=== PATIENT | male | born 1970 | race Caucasian/White ===

== ENCOUNTER → 2017-10-04 | Outpatient (CLI) | payer OTHER | END | disposition home or self-care (01) | LOC: LABWHC1 12:56 | PROVIDERS: ATTEND Urology | DX: E29.1 Testicular hypofunction (principal) | CPT/HCPCS: 36415; 84403 ==

== ENCOUNTER → 2017-11-18 | Outpatient (CLI) | payer OTHER ==
[2017-11-18 09:39] LABS: Basophils # (A) 0.1 k/uL (0-0.2); Basophils % (A) 1 %; Eosinophils # (A) 0.2 k/uL (0-0.7); Eosinophils % (A) 2 %; HCT 47.5 % (39.0-53.0); HGB 16.7 gm/dL (13.0-17.5); Lymphocytes # (A) 2.4 k/uL (1.0-4.8); Lymphocytes % (A) 30 %; MCH 32.3 pg (25.0-35.0); MCHC 35.1 g/dL (31.0-37.0); MCV 91.8 fL (80.0-100.0); Mean Platelet Volume 7.6; Monocytes # (A) 0.5 k/uL (0-1.0); Monocytes % (A) 6 %; Neutrophils # (A) 4.6 k/uL (1.3-7.7); Neutrophils % (A) 58 %; Platelet Count 191 k/uL (150-450); RBC 5.17 m/uL (4.30-5.90); RDW 12.9 % (11.5-15.5)
[2017-11-18 09:59] LABS: ALT 19 U/L (21-72); AST 19 U/L (17-59); Albumin 4.1 g/dL (3.5-5.0); Alkaline Phosphatase 111 U/L (38-126); Anion Gap 11 mmol/L; Blood Urea Nitrogen 18 mg/dL (9-20); Calcium 9.6 mg/dL (8.4-10.2); Carbon Dioxide 29 mmol/L (22-30); Chloride 108 mmol/L (98-107); Cholesterol 192 mg/dL (<200); Glucose 132 mg/dL (74-99); HDL Cholesterol 39 mg/dL (40-60); LDL Cholesterol,Calculated 119 mg/dL (0-99); Potassium 4.8 mmol/L (3.5-5.1); Sodium 148 mmol/L (137-145); Total Bilirubin 0.4 mg/dL (0.2-1.3); Total Protein 6.7 g/dL (6.3-8.2); Triglycerides 169 mg/dL (<150)
== END ==
LOC: LABWHC1 09:22
PROVIDERS: ATTEND Nurse Practitioner Primary Care
DX: Z00.01 Encounter for general adult medical examination with abnormal findings (principal)
CPT/HCPCS: 36415; 80053; 80061; 82306; 84443; 85025

== ENCOUNTER → 2017-11-27 | Outpatient (CLI) | payer OTHER ==
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
== END | disposition home or self-care (01) ==
LOC: RADXRMAIN 11:10
PROVIDERS: ATTEND Nurse Practitioner Primary Care
DX: M19.071 Primary osteoarthritis, right ankle and foot (principal); M77.31 Calcaneal spur, right foot

== ENCOUNTER 2020-09-24 08:55 | Day surgery (SDC) | payer OTHER ==
[2020-09-23 08:12] VITALS: BMI 33.4
[~2020-09-24 08:55] MED LIST: LACTATED RINGERS 1,000 ML IV SCH
[2020-09-24 09:17] VITALS: RESP 16; TEMP 97
[2020-09-24] MEDS ORDERED: LIDOCAINE 1% (10MG/ML) FOR IV START INTRADERMA ONE (09:27)
[2020-09-24] MEDS ORDERED: PROPOFOL 10 MG/ML 20 ML VIAL IV ONE (10:05)
--- NOTE | 2020-09-24 10:09 | P.GSHP ---
History of Present Illness H&P Date: 09/24/20 Chief Complaint: Screening colonoscopy This a 50-year-old male who presents today for screening colonoscopy. Patient denies any significant GI complaints. Past Medical History Past Medical History: Hypertension History of Any Multi-Drug Resistant Organisms: None Reported Past Surgical History: No Surgical Hx Reported Additional Past Surgical History / Comment(s): "thinks had surgery when younger but not sure what" Past Anesthesia/Blood Transfusion Reactions: No Reported Reaction Smoking Status: Current every day smoker - Past Family History Mother Family Medical History: No Reported History Medications and Allergies Home Medications Medication Instructions Recorded Confirmed Type lisinopriL [Zestril] 10 mg PO QAM 09/23/20 09/24/20 History traZODone HCL 200 mg PO HS 09/23/20 09/24/20 History Allergies Allergy/AdvReac Type Severity Reaction Status Date / Time No Known Allergies Allergy Verified 09/23/20 08:05 Surgical - Exam Vital Signs Temp Pulse Resp BP Pulse Ox 97.0 F L 61 16 139/77 98 09/24/20 09:16 09/24/20 09:16 09/24/20 09:16 09/24/20 09:16 09/24/20 09:16 - General well developed, well nourished, no distress - Eyes PERRL - ENT normal pinna - Neck no masses Assessment and Plan Assessment: We'll perform screening colonoscopy
--- NOTE | 2020-09-24 10:19 | P.OP ---
Date of Procedure: 09/24/20 Preoperative Diagnosis: Screening colonoscopy Postoperative Diagnosis: Internal and external hemorrhoids Procedure(s) Performed: Colonoscopy Anesthesia: MAC Surgeon: Ismael Robledo Pathology: none sent Condition: stable Disposition: PACU Description of Procedure: The patient's placed on the endoscopy table in the lateral position. He received IV sedation. Digital rectal exam was performed which revealed extensive internal and external hemorrhoids. The flexible colonoscope was then placed patient anus passed throughout the entire colon. The ileocecal valve was visually is. The cecum, ascending and transverse colon appeared normal. The descending and; appeared normal. The scope was then brought back the rectum was normal. Scope was withdrawn in the patient's had a large internal/external hemorrhoids. There is known to any active bleeding.
[2020-09-24 10:34] VITALS: BP 135/83; PULSE 57
== END 2020-09-24 10:57 | disposition home or self-care (01) ==
LOC: ORWHC2ENDO 08:55
PROVIDERS: ATTEND Surgery
DX: Z12.11 Encounter for screening for malignant neoplasm of colon (principal); K64.8 Other hemorrhoids; K64.4 Residual hemorrhoidal skin tags; I10 Essential (primary) hypertension; F17.200 Nicotine dependence, unspecified, uncomplicated; Z79.899 Other long term (current) drug therapy
CPT/HCPCS: G0121; J2704; 45378

== ENCOUNTER 2020-10-09 06:24 | Day surgery (SDC) | payer OTHER ==
[2020-10-07 11:36] VITALS: BMI 34.2
[~2020-10-09 06:24] MED LIST changes: +ACETAMINOPHEN TAB 500 MG TAB PO PRN; +HEPARIN SODIUM,PORCINE 5,000 UNIT/ML 1 ML VIAL SQ PRN; -LACTATED RINGERS 1,000 ML IV SCH; +Pre Op ABX Message 1 EACH MISC MISCELLANE ONE
[2020-10-09] MEDS ORDERED: ONDANSETRON 4 MG/2 ML VIAL ONE (06:51)
[2020-10-09] MEDS ORDERED: LACTATED RINGERS 1,000 ML IV ONE ×2 (07:00→09:10)
[2020-10-09] MEDS ORDERED: DEXAMETHASONE SOD PHOSPHATE 4 MG/ML 1 ML VIAL IV ONE (07:00)
[2020-10-09 07:08] LABS: Glucose,Whole Blood 120 mg/dL (75-99)
[2020-10-09] MEDS ORDERED: fentaNYL (PF) 50 MCG/ML 2 ML AMP ONE (07:50)
[2020-10-09] MEDS ORDERED: SUCCINYLCHOLINE CHLORIDE 100 MG/5 ML SYR IV ONE (07:50)
[2020-10-09] MEDS ORDERED: LIDOCAINE 1% INJ 10MG/ML (20 ML MDV) ONE (07:50)
[2020-10-09] MEDS ORDERED: MIDAZOLAM 2 MG/2 ML VIAL ONE (07:50)
[2020-10-09] MEDS ORDERED: PROPOFOL 10 MG/ML 20 ML VIAL IV ONE (07:50)
[2020-10-09] MEDS ORDERED: ceFAZolin 1,000 MG VIAL ONE (07:50)
[2020-10-09] MEDS ORDERED: SODIUM CHLORIDE 0.9% 100 ML with ceFAZolin 2,000 MG IV ONE ×2 (08:15)
[2020-10-09] MEDS ORDERED: LIDOCAINE 1%-EPI 1:100,000 20 ML VIAL SQ ONE ×2 (08:25)
[2020-10-09] MEDS ORDERED: GELATIN SPONGE,ABSORB (SMALL) 1 EACH SPONGE MISCELLANE ONE (08:40)
[2020-10-09 10:21] VITALS: BP 122/64; RESP 18
[2020-10-09 10:23] VITALS: PULSE 70; TEMP 97.6
--- NOTE | 2020-10-09 11:05 | P.GSHP ---
History of Present Illness H&P Date: 10/09/20 Chief Complaint: Internal and external hemorrhoids This 50-year-old male who's presents today for excision of internal and external hemorrhoids. His problems with hemorrhoidal bleeding and pain. Past Medical History Past Medical History: Hypertension Additional Past Medical History / Comment(s): hemorrhoids History of Any Multi-Drug Resistant Organisms: None Reported Past Surgical History: No Surgical Hx Reported Additional Past Surgical History / Comment(s): colonoscopy Past Anesthesia/Blood Transfusion Reactions: No Reported Reaction Past Psychological History: No Psychological Hx Reported Smoking Status: Current every day smoker Past Alcohol Use History: None Reported Additional Past Alcohol Use History / Comment(s): started smoking age 10,1ppd Past Drug Use History: None Reported - Past Family History Mother Family Medical History: No Reported History Medications and Allergies Home Medications Medication Instructions Recorded Confirmed Type lisinopriL [Zestril] 10 mg PO QAM 09/23/20 10/07/20 History traZODone HCL 200 mg PO HS 09/23/20 10/07/20 History Acetaminophen Tab [Tylenol] 650 mg PO Q6H #30 tab 10/09/20 Rx Docusate [Colace] 100 mg PO BID #20 capsule 10/09/20 Rx HYDROcodone/APAP 5-325MG [[place] 1 tab PO Q6HR PRN #10 tab 10/09/20 Rx 5-325] Ibuprofen [Motrin] 600 mg PO Q6HR PRN #40 tab 10/09/20 Rx oxyCODONE HCL [OxyIR] 5 mg PO Q4H PRN 3 Days #18 tab 10/09/20 Rx Allergies Allergy/AdvReac Type Severity Reaction Status Date / Time No Known Allergies Allergy Verified 10/07/20 11:31 Surgical - Exam Vital Signs Temp Pulse Resp BP Pulse Ox 97.6 F 70 20 111/72 100 10/09/20 06:45 10/09/20 06:45 10/09/20 06:45 10/09/20 06:45 10/09/20 06:45 - General well nourished, no distress - Eyes PERRL - ENT normal pinna - Neck no masses - Respiratory normal expansion - Cardiovascular Rhythm: regular - Abdomen Abdomen: soft, non tender Results - Labs Abnormal Lab Results - Last 24 Hours (Table) 10/09/20 Range/Units 07:00 POC Glucose (mg/dL) 120 H (75-99) mg/dL Assessment and Plan Assessment: Internal and external hemorrhoids. We'll perform hemorrhoidectomy.
--- NOTE | 2020-10-09 11:08 | P.OP ---
Date of Procedure: 10/09/20 Preoperative Diagnosis: Internal and external hemorrhoids Postoperative Diagnosis: Internal and external hemorrhoids Procedure(s) Performed: Internal and external hemorrhoidectomy Anesthesia: RIA Surgeon: Ismael Robledo Estimated Blood Loss (ml): 5 Pathology: other (Internal and external hemorrhoids) Condition: stable Disposition: PACU Description of Procedure: The patient's placed on the operative table in the prone position and received general anesthesia. His anus was prepped and draped usual fashion. The needle tract was anus. Patient large internal hemorrhoids. The left lateral column was grasped first and then using Harmonic scissors the hemorrhoid was performed. The right anterior and right posterior columns were excised in identical fashion. There is no bleeding seen. 3-0 Vicryl was used to close mucosa. Gelfoam was placed anus. Patient top she will was sent to recovery room stable condition.
== END 2020-10-09 11:01 | disposition home or self-care (01) ==
LOC: OR 06:24
PROVIDERS: ATTEND Surgery
DX: K64.8 Other hemorrhoids (principal); K64.4 Residual hemorrhoidal skin tags; Z98.890 Other specified postprocedural states; F17.210 Nicotine dependence, cigarettes, uncomplicated; Z79.899 Other long term (current) drug therapy
CPT/HCPCS: 88304; 46260; J2250; J1644; J1100; J2405; J0690; J2001; J3010; J0330; J2704

== ENCOUNTER 2021-02-13 14:06 | Emergency (ER) | payer OTHER ==
--- NOTE | 2021-02-13 15:16 | XR ---
EXAMINATION TYPE: XR clavicle RT DATE OF EXAM: 02/13/2021 COMPARISON: NONE HISTORY: Pain TECHNIQUE: 2 views FINDINGS: There is comminuted fracture mid shaft of the right clavicle. There is 2 cm inferior displa cement of the lateral major fragment. There is no dislocation. Glenohumeral joint is anatomic. There is fracture of the right posterior second rib. IMPRESSION: Comminuted displaced clavicle fracture. Right posterior second rib displaced fracture.
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
--- NOTE | 2021-02-13 15:18 | XR ---
EXAMINATION TYPE: XR shoulder complete RT DATE OF EXAM: 02/13/2021 COMPARISON: NONE HISTORY: Pain TECHNIQUE: 3 views FINDINGS: There is comminuted displaced right clavicle fracture. The glenohumeral joint is intact. AC joint is intact. There is displaced posterior right second rib fracture. There is no sign of a pneum othorax. IMPRESSION: Displaced clavicle and right second rib fractures. No fracture seen at the glenohumeral j oint.
[2021-02-13 16:05] VITALS: BP 138/82; PULSE 76; RESP 18; TEMP 98.2
== END 2021-02-13 16:04 | disposition home or self-care (01) ==
LOC: EC 14:06
DX: S42.021A Displaced fracture of shaft of right clavicle, initial encounter for closed fracture (principal); S22.31XA Fracture of one rib, right side, initial encounter for closed fracture; S40.211A Abrasion of right shoulder, initial encounter; S50.312A Abrasion of left elbow, initial encounter; F17.200 Nicotine dependence, unspecified, uncomplicated; I10 Essential (primary) hypertension; Z79.899 Other long term (current) drug therapy; V28.4XXA Motorcycle driver injured in noncollision transport accident in traffic accident, initial encounter
CPT/HCPCS: 99283

== ENCOUNTER → 2021-03-04 | Outpatient (CLI) | payer OTHER ==
[2021-03-05 01:57] LABS: Hemoglobin A1C 5.7 % (4.0-6.0)
== END | disposition home or self-care (01) ==
LOC: LABWHC1 14:40
PROVIDERS: ATTEND Family Medicine
DX: Z51.81 Encounter for therapeutic drug level monitoring (principal); Z79.899 Other long term (current) drug therapy
CPT/HCPCS: 36415; 83036

== ENCOUNTER → 2023-11-16 | Outpatient (CLI) | payer OTHER ==
[2023-11-16 20:39] LABS: Appearance,Urine Clear (Clear); Bilirubin,Urine Negative (Negative); Blood,Urine Negative (Negative); Color,Urine Yellow (Yellow); Ketones,Urine Negative (Negative); Nitrite,Urine Negative (Negative); PH, Urine 6.5; Specific Gravity,Urine 1.026 (1.001-1.030)
[2023-11-16 21:38] LABS: Basophils # (A) 0.08 X 10*3/uL (0.00-0.10); Basophils % (A) 0.8 %; Eosinophils # (A) 0.21 X 10*3/uL (0.04-0.35); Eosinophils % (A) 2.2 %; HCT 45.9 % (39.6-50.0); MCH 31.7 pg (27.0-32.0); MCHC 34.9 g/dL (32.0-37.0); MCV 91.1 FL (80.0-97.0); Mean Platelet Volume 11.6 FL (9.5-12.2); Monocytes # (A) 0.77 X 10*3/uL (0.20-1.00); Monocytes % (A) 7.9 %; NRBC Per 100 WBC 0 X 10*3/uL (0.00-0.01); Neutrophils # (A) 5.13 X 10*3/uL (1.80-7.70); Neutrophils % (A) 52.9 %; Platelet Count 188 X 10*3/uL (140-440); RBC 5.04 X 10*6/uL (4.40-5.60); RDW 12.7 % (11.5-14.5); WBC 9.71 X 10*3/uL (4.50-10.00)
[2023-11-16 23:14] LABS: Blood Urea Nitrogen 22.2 mg/dL (9.0-27.0); Calcium 9.6 mg/dL (8.7-10.3); Carbon Dioxide 17.5 mmol/L (21.6-31.8); Chloride 101 mmol/L (96-109); Glucose 84 mg/dL (70-110); Potassium 4.6 mmol/L (3.5-5.5); Sodium 135 mmol/L (135-145)
== END | disposition home or self-care (01) ==
LOC: LABPAT 16:19
PROVIDERS: ATTEND Urology
DX: Z01.812 Encounter for preprocedural laboratory examination (principal); N52.9 Male erectile dysfunction, unspecified
CPT/HCPCS: 36415; 80048; 81003; 85025; 87086

== ENCOUNTER 2023-11-22 07:15 | Day surgery (SDC) | payer OTHER ==
--- NOTE | 2023-11-21 19:41 | P.GSHP ---
History of Present Illness H&P Date: 11/21/23 53 yo male with hypertension and tobacco abuse has impotenmce. He has failed conservative measures including pde5 inhibitors, vasoactive injections. He comes for a penile implant. He understands the risks including, ind=fection, bleeding, pain, lack of satisfaction, implant failure, permanent impotance. He comes for this surgery. - Constitutional Constitutional: Denies chills, Denies fever - EENT Eyes: denies blurred vision, denies pain Ears, nose, mouth and throat: Denies headache, Denies sore throat - Cardiovascular Cardiovascular: Denies chest pain, Denies shortness of breath - Respiratory Respiratory: Denies cough, Denies 7 - Gastrointestinal Gastrointestinal: Denies abdominal pain, Denies diarrhea, Denies nausea, Denies vomiting - Genitourinary (Female) Genitourinary: Denies dysuria, Denies hematuria - Genitourinary (Male) Genitourinary: Denies dysuria, Denies hematuria - Musculoskeletal Musculoskeletal: Denies myalgias - Integumentary Integumentary: Denies pruritus, Denies rash - Neurological Neurological: Denies numbness, Denies weakness - Psychiatric Psychiatric: Denies anxiety, Denies depression - Endocrine Endocrine: Denies fatigue, Denies weight change Past Medical History Past Medical History: Hypertension Additional Past Medical History / Comment(s): hemorrhoids, on inhaler sposue not sure why he's taking it, History of Any Multi-Drug Resistant Organisms: None Reported Past Surgical History: No Surgical Hx Reported Additional Past Surgical History / Comment(s): colonoscopy Past Anesthesia/Blood Transfusion Reactions: No Reported Reaction Smoking Status: Current every day smoker - Past Family History Mother Family Medical History: No Reported History Medications and Allergies Home Medications Medication Instructions Recorded Confirmed Type lisinopriL [Zestril] 10 mg PO QAM 09/23/20 11/17/23 History traZODone HCL 200 mg PO HS 09/23/20 11/17/23 History Acetaminophen Tab [Tylenol] 650 mg PO Q6H #30 tab 10/09/20 11/17/23 Rx HYDROcodone/APAP 5-325MG [[place] 1 tab PO Q6HR PRN #10 tab 10/09/20 11/17/23 Rx 5-325] Ibuprofen [Motrin] 600 mg PO Q6HR PRN #40 tab 10/09/20 11/17/23 Rx oxyCODONE HCL [OxyIR] 5 mg PO Q4H PRN 3 Days #18 tab 10/09/20 11/17/23 Rx Escitalopram [Lexapro] 20 mg PO DAILY 11/17/23 11/17/23 History Omeprazole [PriLOSEC] 40 mg PO DAILY 11/17/23 11/17/23 History Tiotropium 18 Mcg/Puff [Spiriva] 2 puff INHALATION DAILY 11/17/23 11/17/23 History busPIRone HCL [Buspirone HCl] 5 mg PO BID 11/17/23 11/17/23 History Allergies Allergy/AdvReac Type Severity Reaction Status Date / Time No Known Allergies Allergy Verified 11/17/23 11:36 Surgical - Exam - General well developed, well nourished, no distress - Eyes normal ocular movement, no icteric - ENT no hearing loss, no congestion - Neck no masses, trachea midline - Respiratory normal respiratory effort, clear to auscultation - Abdomen Abdomen: soft, non tender, no guarding, no rigid, no rebound - Integumentary no rash, no abnormal pigmentation - Neurologic no disoriented, no combative - Psychiatric oriented to time, oriented to person, oriented to place, speech is normal, memory intact Assessment and Plan Assessment: 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
[2023-11-22] MEDS ORDERED: HYDROmorphone 0.5 MG/0.5 ML SYRINGE IVP PRN (07:37)
[2023-11-22] MEDS: LACTATED RINGERS 1,000 ML IV SCH (08:16)
[2023-11-22] MEDS: DEXAMETHASONE SOD PHOSPHATE 4 MG/ML 1 ML VIAL IV ONE (08:21)
[2023-11-22] MEDS: ONDANSETRON 4 MG/2 ML VIAL IVP ONE (08:21)
[2023-11-22] MEDS: GENTAMICIN 120 MG in SODIUM CHLORIDE 0.9% 100 ML IVPB PRN (09:44)
[2023-11-22] MEDS: AMPICILLIN 1,000 MG in SODIUM CHLORIDE 0.9% 50 ML IVPB PRN (09:44)
[2023-11-22] MEDS: LACTATED RINGERS 1,000 ML IV ONE (10:44)
--- NOTE | 2023-11-22 11:04 | P.OP ---
Date of Procedure: 11/22/23 Preoperative Diagnosis: organic impotence secondary to hypertension and tobacco abuse Postoperative Diagnosis: same Procedure(s) Performed: insertion of AMS series 800 inflatable penile implant size 18 cm +2 cm rear-tip counselor/art therapist +65 mL reservoir Anesthesia: RIA Surgeon: Nico Reese Estimated Blood Loss (ml): 25 Pathology: none sent Condition: stable Disposition: PACU Indications for Procedure: patient is 53. He has organic impotence secondary to hypertension and tobacco abuse. He has failed PDE 5 inhibitors and vasoactive injections. He comes for an inflatable penile implant.the risks and complications have been outlined Description of Procedure: patient is brought to the operating suite. He is given a general anesthetic. He is prepped and draped sterilely. A 16-Divehi red rubber catheter drains the bladder. A midline infrapubic incision is made. I dissect down to both corpora cavernosum and clean them bilaterally. 3-0 PDS stitches are placed through each corpora as stay stitches. Corporotomies were made bilaterally. I dissect the corpora cavernosum bilaterally proximally and then distally with Metzenbaum scissors and then Hegar dilators 9-14. I measured the length of the corpora at 11 cm proximally and 9 cm distally bilaterally. I then open the rectus fascia and created a prevesical space for the reservoir. It is placed in the prevesical space and the tubing is brought out through the external ring. The rectus fascias closed with 0 PDS. The balloon is insufflated to 65 mL's of saline without difficulty. I then used the Ruslan needle and Esther introducer to introduce implant distally through the corpora cavernosa with a needle go through the head of the penis bilaterally. I then see each implant into the corpora and insufflate the implant to make sure there is no buckling and there is none. Corporotomies are closed with running 3-0 PDS. I then inflate the implant again there is no buckling and there is no ST deformity. I then placed the pump in the scrotal space created. I then connected the pump to the reservoir with straight connects. I then again inflate and deflate the implant without difficulty. The wound is irrigated thoroughly. Subcutaneous tissues closed with 3-0 chromic. Skin with 4-0 Vicryl. Patient is awakened without problems. Blood loss is 25-30 mL. Condition is good. He tolerated procedure well.
[2023-11-22 11:39] VITALS: RESP 16; TEMP 97.6
[2023-11-22 13:07] VITALS: BP 121/74; PULSE 59
== END 2023-11-22 13:26 | disposition home or self-care (01) ==
LOC: OR 07:15
PROVIDERS: ATTEND Urology
DX: N52.9 Male erectile dysfunction, unspecified (principal); I10 Essential (primary) hypertension; F17.210 Nicotine dependence, cigarettes, uncomplicated; Z87.19 Personal history of other diseases of the digestive system; Z79.899 Other long term (current) drug therapy
CPT/HCPCS: 54405; C1813; J1100; J2405; J1580; J0290

== ENCOUNTER 2024-10-09 11:04 | Emergency (ER) | payer OTHER ==
--- NOTE | 2024-10-09 12:00 | ED ---
Fall HPI - General Chief Complaint: Fall Stated Complaint: left index finger injury and right knee pain Time Seen by Provider: 10/09/24 11:56 Source: patient, RN notes reviewed Mode of arrival: ambulatory - History of Present Illness Initial Comments: 54-year-old male presenting for laceration to left second digit 1 hour ago. Reports he was using a chainsaw when he slipped and fell on the ice, landing on his right knee and accidentally cutting his left index finger with a saw. Denies head injury. Reports he has a laceration to the ventral aspect left index finger. Endorses full range of motion and sensation to finger. Denies blood thinners. Last tetanus unknown. He is able to ambulate. He is right- hand dominant. - Related Data Home Medications Medication Instructions Recorded Confirmed lisinopriL [Zestril] 10 mg PO QAM 09/23/20 11/17/23 traZODone HCL 200 mg PO HS 09/23/20 11/17/23 Escitalopram [Lexapro] 20 mg PO DAILY 11/17/23 11/17/23 Omeprazole [PriLOSEC] 40 mg PO DAILY 11/17/23 11/17/23 Tiotropium 18 Mcg/Puff [Spiriva] 2 puff INHALATION DAILY 11/17/23 11/17/23 busPIRone HCL [Buspirone HCl] 5 mg PO BID 11/17/23 11/17/23 traMADol HCL 50 mg PO Q12H 11/22/23 11/22/23 Previous Rx's Medication Instructions Recorded Acetaminophen Tab [Tylenol] 650 mg PO Q6H #30 tab 10/09/20 Ibuprofen [Motrin] 600 mg PO Q6HR PRN #40 tab 10/09/20 HYDROcodone/APAP 5-325MG [[place] 1 tab PO Q4HR PRN #14 tab 11/22/23 5-325] Cephalexin [Keflex] 500 mg PO Q12H 7 Days #14 cap 10/09/24 Allergies Allergy/AdvReac Type Severity Reaction Status Date / Time No Known Allergies Allergy Verified 10/09/24 11:10 Review of Systems ROS Statement: Those systems with pertinent positive or pertinent negative responses have been documented in the HPI. ROS Other: All systems not noted in ROS Statement are negative. Past Medical History Past Medical History: Hypertension Additional Past Medical History / Comment(s): hemorrhoids History of Any Multi-Drug Resistant Organisms: None Reported Past Surgical History: No Surgical Hx Reported Additional Past Surgical History / Comment(s): colonoscopy Past Anesthesia/Blood Transfusion Reactions: No Reported Reaction Past Psychological History: No Psychological Hx Reported Smoking Status: Current every day smoker Past Alcohol Use History: None Reported Past Drug Use History: None Reported - Past Family History Mother Family Medical History: No Reported History General Exam Limitations: no limitations General appearance: alert, in no apparent distress Head exam: Present: atraumatic, normocephalic, normal inspection Left Forearm Wrist exam: Present: normal inspection, full ROM. Absent: tenderness, swelling Hand Wrist exam: Present: full ROM, tenderness, laceration (4 cm laceration just distal to DIP joint on the lateral aspect of left second digit, no active bleeding, no exposed tendon or bone). Absent: normal inspection, swelling, deformity Vascular: Present: normal capillary refill, radial pulse. Absent: vascular compromise (Full sensation to distal aspect of second digit) Right Upper Leg exam: Present: normal inspection, full ROM. Absent: tenderness, swelling Knee exam: Present: normal inspection, full ROM. Absent: tenderness, swelling Lower Leg exam: Present: normal inspection, full ROM. Absent: tenderness, swelling Ankle exam: Present: normal inspection, full ROM. Absent: tenderness, swelling Neurovascular tendon exam: Present: no vascular compromise. Absent: pulse deficit, abnormal cap refill, sensory deficit Neurological exam: Present: alert, oriented X3 Psychiatric exam: Present: normal affect, normal mood Skin exam: Present: warm, dry, intact, normal color. Absent: rash Course Vital Signs 10/09/24 10/09/24 13:09 14:27 Temperature 98.2 F 98.1 F Pulse Rate 92 18 L Respiratory 18 88 H Rate Blood Pressure 157/89 145/76 O2 Sat by Pulse 97 96 Oximetry Procedures - Laceration Laceration #1 Consent Obtained: verbal consent Indication: laceration Site: upper extremity Size (cm): 4 Description: linear Depth: simple, single layer Anesthetic Used: lidocaine 1%, without epi Anesthesia Technique: local infiltration Amount (mls): 3 Pre-repair: wound explored, irrigated extensively, deep structures intact Type of Sutures: nylon Size of Sutures: 4-0 Number of Sutures: 5 Technique: simple, interrupted Patient Tolerated Procedure: well, no complications Additional Comments: Neurovascularly intact status post procedure Medical Decision Making - Medical Decision Making Was pt. sent in by a medical professional or institution (, RICHARD, NOISE TESTER, urgent care, hospital, or alf...) When possible be specific @ -No Did you speak to anyone other than the patient for history (EMS, parent, family, police, friend...)? What history was obtained from this source @ -No Did you review nursing and triage notes (agree or disagree)? Why? @ -I reviewed and agree with nursing and triage notes Were old charts reviewed (outside hosp., previous admission, EMS record, old EKG, old radiological studies, urgent care reports/EKG's, alf records)? Report findings @ -No old charts were reviewed Differential Diagnosis (chest pain, altered mental status, abdominal pain women, abdominal pain men, vaginal bleeding, weakness, fever, dyspnea, syncope, headache, dizziness, GI bleed, back pain, seizure, CVA, palpatations, mental hea lth, musculoskeletal)? @ -Differential Musculoskeletal Muscular strain, contusion, ligament sprain, fracture, arthritis, septic arthritis, bursitis, cellulitis, muscle spasm, nerve compression, DVT, arterial occlusion, herpes zoster, electrolyte abnormality, tumor.... This is not meant to be in all inclusive list EKG interpreted by me (3pts min.). @ -None X-rays interpreted by me (1pt min.). @ -X-ray left hand and right knee reveals no acute process CT interpreted by me (1pt min.). @ -None done U/S interpreted by me (1pt. min.). @ -None done What testing was considered but not performed or refused? (CT, X-rays, U/S, labs)? Why? @ -None What meds were considered but not given or refused? Why? @ -None Did you discuss the management of the patient with other professionals (professionals i.e. RICHARD Reyes, NOISE TESTER, lab, RT, psych nurse, administrator social welfare, psych rn, teacher, civil preparedness training officer, hospice case manager)? Give summary @ -No Was smoking cessation discussed for >3mins.? @ -No Was critical care preformed (if so, how long)? @ -No Were there social determinants of health that impacted care today? How? (Homelessness, low income, unemployed, alcoholism, drug addiction, transportation, low edu. Level, literacy, decrease access to med. care, half-way, rehab)? @ -No Was there de-escalation of care discussed even if they declined (Discuss DNR or withdrawal of care, Hospice)? DNR status @ -No What co-morbidities impacted this encounter? (DM, HTN, Smoking, COPD, CAD, Cancer, CVA, ARF, Chemo, Hep., AIDS, mental health diagnosis, sleep apnea, morbid obesity)? @ -None Was patient admitted / discharged? Hospital course, mention meds given and route, prescriptions, significant lab abnormalities, going to OR and other pertinent info. @ -Discharge. 54-year-old male presenting for left index finger laceration cassie or to arrival. Patient slipped and fell on ice, accidentally cutting his left index finger with a saw. Also fell directly onto her right knee. Patient is able to ambulate. Neurovascularly intact in bilateral upper and lower extremities. There is a 4 cm laceration present on lateral aspect of left second digit. Full range of motion of DIP and PIP joint. No tendon involvement. X-ray left hand and right knee reveals no acute process. Tetanus was updated. Wound was thoroughly irrigated and 5 sutures were performed with no complications. Advised to follow-up in 7 days for suture removal. Prescribed Keflex for antibacterial prophylaxis. Wound care discussed as well as return precautions. Case was discussed with my ED attending Dr. Sanabria. Undiagnosed new problem with uncertain prognosis? @ -No Drug Therapy requiring intensive monitoring for toxicity (Heparin, Nitro, Insulin, Cardizem)? @ -No Were any procedures done? @ -5 sutures performed to left index finger Diagnosis/symptom? @ -Left index finger laceration Acute, or Chronic, or Acute on Chronic? @ -Acute Uncomplicated (without systemic symptoms) or Complicated (systemic symptoms)? @ -Uncomplicated Side effects of treatment? @ -No Exacerbation, Progression, or Severe Exacerbation? @ -No Poses a threat to life or bodily function? How? (Chest pain, [place], [place], pneumonia, PE, COPD, DKA, ARF, appy, cholecystitis, CVA, Diverticulitis, Homicidal, Suicidal, threat to staff... and all critical care pts) @ -No Disposition Clinical Impression: Laceration of left index finger Disposition: HOME SELF-CARE Condition: Stable Instructions (If sedation given, give patient instructions): Finger Laceration (ED) Additional Instructions: Follow-up in 7 days for suture removal. Take Keflex as prescribed. Keep wound dry for 24 hours, then you may gently wash with antibacterial soap and water. Please return to the Emergency Department if symptoms worsen or any other concerns. Prescriptions: Cephalexin [Keflex] 500 mg PO Q12H 7 Days #14 cap Is patient prescribed a controlled substance at d/c from ED?: No Referrals: Carlos Sanches MD [Primary Care Provider] - 1-2 days Time of Disposition: 14:18
[2024-10-09] MEDS: IBUPROFEN 800 MG TAB PO STA (12:04)
[2024-10-09] MEDS: LIDOCAINE 1% INJ 10MG/ML (20 ML MDV) SQ ONE (12:04)
[2024-10-09] MEDS: DIPH,PERTUS(ACELL)TETVAC-LF 0.5 ML VIAL IM ONE (12:05)
--- NOTE | 2024-10-09 12:31 | XR ---
EXAMINATION TYPE: XR hand complete LT DATE OF EXAM: 10/09/2024 12:20 PM COMPARISON: None CLINICAL INDICATION: Male, 54 years old with history of left 2nd digit injury; PHH, pain TECHNIQUE: XR hand complete LT 3 views were obtained. FINDINGS: Normal alignment of the visualized joints. No acute osseous pathology is identified. No e vidence of soft tissue swelling. No significant degeneration IMPRESSION: 1. No acute osseous pathology. 2. Multifocal osteoarthrosis throughout the joints of the hand. [facility], , 10/09/2024 12:29 PM
--- NOTE | 2024-10-09 12:32 | XR ---
EXAMINATION TYPE: XR knee complete RT DATE OF EXAM: 10/09/2024 12:17 PM COMPARISON: None CLINICAL INDICATION: Male, 54 years old with history of right knee injury; PHH, pain TECHNIQUE: XR knee complete RT 3 views submitted. FINDINGS: No evidence of any acute osseous pathology, soft tissue swelling, or joint effusion is no nidia. Tricompartmental osteophyte formation involving the femoral condyles, tibial plateau and patella . Mild joint space narrowing. Prepatellar soft tissue edema and large joint effusion noted. IMPRESSION: 1. No acute osseous pathology. 2. Mild tricompartmental osteoarthritic changes. 3. Moderate joint effusion. Correlate with MRI for ligamentous injury. [facility], , 10/09/2024 12:30 PM
[2024-10-09 14:41] VITALS: BP 145/76; PULSE 18; RESP 88; TEMP 98.1
== END 2024-10-09 15:05 | disposition home or self-care (01) ==
LOC: EC 11:04
DX: S61.211A Laceration without foreign body of left index finger without damage to nail, initial encounter (principal); F17.200 Nicotine dependence, unspecified, uncomplicated; Z23 Encounter for immunization; W29.3XXA Contact with powered garden and outdoor hand tools and machinery, initial encounter
CPT/HCPCS: 73130; 73562; 90715; 12002; 99283; 90471; J2003